=== PATIENT | female | born 1990 | race Caucasian/White ===

== ENCOUNTER 2021-01-20 17:16 | Emergency (ER) | payer SELFPAY ==
[~2021-01-20] VITALS: Ht 152.4 cm; Wt 50.0 kg
[2021-01-20 17:30] VITALS: Ht 152.4 cm; Wt 50.0 kg
[2021-01-20 17:55] LABS: UDS - AMPHET POSITIVE QUAL (NEGATIVE); UDS - BARB NEGATIVE QUAL (NEGATIVE); UDS - BENZO NEGATIVE QUAL (NEGATIVE); UDS - COCAINE NEGATIVE QUAL (NEGATIVE); UDS - OPIATE NEGATIVE QUAL (NEGATIVE); UDS - PCP NEGATIVE QUAL (NEGATIVE); UDS - THC NEGATIVE QUAL (NEGATIVE)
[2021-01-20 18:00] LABS: BILIRUBIN NEGATIVE (NEGATIVE); HCG URINE POSITIVE (NEGATIVE); KETONE NEGATIVE (NEGATIVE); NITRITE NEGATIVE (NEGATIVE); UROBILINOGEN NORMAL mg/dL (< 2)
[2021-01-20 18:08] LABS: BACTERIA MANY HPF (NONE SEEN); SQUAMOUS EPITHELIAL 0-5 HPF (0-4)
[2021-01-20 18:20] LABS: BASOPHILS 0.2 % (0-2); EOSINOPHILS 2.4 % (0-7); HEMATOCRIT 35.8 % (36.0-48.0); HEMOGLOBIN 11.8 g/dL (12-16); IMMATURE GRANULOCYTES 0.1 % (0-5); LYMPHOCYTE ABS# 3.24 10x3/uL (1.18-3.74); LYMPHOCYTES 35.2 % (15-50); MCH 30.5 pg (26.0-34.0); MCV 92.5 fL (80.0-100.0); MEAN PLATELET VOLUME 8.7 fL (7.4-10.4); MONOCYTES 5.3 % (2-11); NEUTROPHIL ABS# 5.23 10x3/uL (1.56-6.13); NEUTROPHILS 56.8 % (40-80); PLATELET COUNT 300 10x3/uL (130-400); RBC 3.87 10x6/uL (4.00-5.40); RDW 12.6 % (11.5-14.5); WBC 9.2 10x3/uL (4.8-10.8)
[2021-01-20 18:31] LABS: CALC OSMOLALITY 271 mosm/kg (275-300); CALCIUM 8.4 mg/dL (8.5-10.1); CARBON DIOXIDE 24.6 mmol/L (21.0-32.0); CHLORIDE - SERUM 104 mmol/L (98-107); CREATININE - SERUM 0.5 mg/dL (0.6-1.3); GLUCOSE 88 mg/dL (74-106); POTASSIUM - SERUM 3.4 mmol/L (3.5-5.1); SODIUM 137 mmol/L (136-145); UREA NITROGEN 10 mg/dL (7-18); eGFR NON AFRICAN AMERICAN > 90 mL/min (90-120)
[2021-01-20 18:39] LABS: ALBUMIN 3.3 g/dL (3.4-5.0); ALKALINE PHOSPHATASE 78 U/L (30-120); ALT (SGPT) 16 U/L (10-68); BILIRUBIN - TOTAL 0.52 mg/dL (0.2-1.3); PROTEIN - SERUM 6.8 g/dL (6.4-8.2)
[2021-01-20] MEDS ORDERED: MACROBID100 MG PO (19:28)
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
[2021-01-20 19:53] VITALS: BP 112/71
== END 2021-01-20 19:53 | disposition home or self-care (01) ==
LOC: D.ER 17:16
PROVIDERS: Emergency Medicine
DX: O23.40 Unspecified infection of urinary tract in pregnancy, unspecified trimester (principal); R45.851 Suicidal ideations; Z3A.00 Weeks of gestation of pregnancy not specified; F19.10 Other psychoactive substance abuse, uncomplicated

== ENCOUNTER 2021-02-21 00:03 | Emergency (ER) | payer BC ==
[~2021-02-21] VITALS: Ht 152.4 cm; Wt 50.9 kg
[~2021-02-21 00:03] MED LIST: MACROBID100 MG PO
[2021-02-21 00:08] VITALS: Ht 152.4 cm; Wt 50.9 kg
[2021-02-21] MEDS ORDERED: ABILIFY10 MG PO (00:13)
[2021-02-21 00:38] LABS: BASOPHILS 0.2 % (0-2); EOSINOPHILS 1.1 % (0-7); HEMATOCRIT 35.2 % (36.0-48.0); HEMOGLOBIN 11.2 g/dL (12-16); LYMPHOCYTE ABS# 3.85 10x3/uL (1.18-3.74); LYMPHOCYTES 29.2 % (15-50); MCH 29.6 pg (26.0-34.0); MCHC 31.8 g/dL (31.0-37.0); MCV 92.9 fL (80.0-100.0); MEAN PLATELET VOLUME 9.5 fL (7.4-10.4); MONOCYTES 7.2 % (2-11); NEUTROPHIL ABS# 8.09 10x3/uL (1.56-6.13); NEUTROPHILS 61.3 % (40-80); PLATELET COUNT 321 10x3/uL (130-400); RBC 3.79 10x6/uL (4.00-5.40); RDW 12.5 % (11.5-14.5); WBC 13.2 10x3/uL (4.8-10.8)
[2021-02-21 00:47] LABS: CALC OSMOLALITY 277 mosm/kg (275-300); CALCIUM 8.8 mg/dL (8.5-10.1); CARBON DIOXIDE 26.9 mmol/L (21.0-32.0); CHLORIDE - SERUM 105 mmol/L (98-107); CREATININE - SERUM 0.5 mg/dL (0.6-1.3); GLUCOSE 82 mg/dL (74-106); POTASSIUM - SERUM 3.4 mmol/L (3.5-5.1); SODIUM 140 mmol/L (136-145); UREA NITROGEN 13 mg/dL (7-18); eGFR NON AFRICAN AMERICAN > 90 mL/min (90-120)
[2021-02-21 00:55] LABS: ALKALINE PHOSPHATASE 65 U/L (30-120); ALT (SGPT) 15 U/L (10-68); BILIRUBIN - TOTAL 0.19 mg/dL (0.2-1.3); CREATINE KINASE 115 UL (21-215); PROTEIN - SERUM 6.4 g/dL (6.4-8.2); THYROID STIMULATING HORMONE 3.37 uIU/mL (0.36-3.74)
[2021-02-21 01:02] LABS: BILIRUBIN NEGATIVE (NEGATIVE); KETONE NEGATIVE (NEGATIVE); NITRITE POSITIVE (NEGATIVE); UROBILINOGEN NORMAL mg/dL (< 2)
[2021-02-21 01:03] LABS: BACTERIA MANY HPF (NONE SEEN); SQUAMOUS EPITHELIAL 0-5 HPF (0-4); WHITE CELLS - URINE 0-5 HPF (0-4)
[2021-02-21 01:05] LABS: UDS - AMPHET NEGATIVE QUAL (NEGATIVE); UDS - BARB NEGATIVE QUAL (NEGATIVE); UDS - BENZO NEGATIVE QUAL (NEGATIVE); UDS - COCAINE NEGATIVE QUAL (NEGATIVE); UDS - OPIATE NEGATIVE QUAL (NEGATIVE); UDS - PCP NEGATIVE QUAL (NEGATIVE); UDS - THC NEGATIVE QUAL (NEGATIVE)
[2021-02-21] MEDS ORDERED: OMNICEF300 MG PO (01:21)
--- NOTE | 2021-02-21 01:39 | NUR ---
DR MANRIQUE NOTIFIED AND REVIEWED PT BEHAVIOR AND ASSESSMENT RESULTS. PT IS A LOW RISK PER DR MANRIQUE. DR MANRIQUE STATED TO GIVE RESOURCES TO PT AT TIME OF DISCHARGE. NO FURTHER ORDERS AT THIS TIME. RESOURCES REVIEWED WITH PT AND SHE VERBALIZED UNDERSTANDING.
[2021-02-21 02:00] LABS: HCG URINE POSITIVE (NEGATIVE)
[2021-02-21 02:02] VITALS: BP 133/96
== END 2021-02-21 02:04 | disposition home or self-care (01) ==
LOC: D.ER 00:03
PROVIDERS: Family Medicine
DX: R00.0 Tachycardia, unspecified (principal); E87.6 Hypokalemia; N39.0 Urinary tract infection, site not specified

== ENCOUNTER 2021-04-17 22:08 | Emergency (ER) | payer BC ==
[~2021-04-17] VITALS: Ht 152.4 cm; Wt 58.6 kg
[~2021-04-17 22:08] MED LIST changes: +ABILIFY10 MG PO; +OMNICEF300 MG PO
[2021-04-17 22:12] VITALS: Ht 152.4 cm; Wt 58.6 kg
[2021-04-17] MEDS ORDERED: KLONOPIN1 MG PO (22:15)
[2021-04-17] MEDS ORDERED: ADDERALL 20 MG20 M1 PO (22:15)
[2021-04-18] VITALS: BP 120/70
== END 2021-04-18 00:01 | disposition home or self-care (01) ==
LOC: D.ER 22:08
DX: G44.009 Cluster headache syndrome, unspecified, not intractable (principal); G43.809 Other migraine, not intractable, without status migrainosus

== ENCOUNTER 2021-04-19 14:13 | Emergency (ER) | payer BC ==
[~2021-04-19] VITALS: Ht 152.4 cm; Wt 59.1 kg
[~2021-04-19 14:13] MED LIST changes: +ADDERALL 20 MG20 M1 PO; +KLONOPIN1 MG PO
[2021-04-19 14:41] VITALS: Ht 152.4 cm; Wt 59.1 kg
[2021-04-19 16:22] VITALS: BP 98/57
== END 2021-04-19 16:58 | disposition home or self-care (01) ==
LOC: D.ER 14:13
DX: R51.9 Headache, unspecified (principal); R11.0 Nausea